=== PATIENT | male | born 1935 | race Caucasian/White ===

== ENCOUNTER 2016-12-09 16:24 | Inpatient (IN) | payer OTHER ==
[2016-12-09] MEDS ORDERED: LIDO/EPI 1% **for epidural** 30 ML SDV ONE (16:43)
[2016-12-09] MEDS ORDERED: LR 1,000 ML IV ONE (17:16)
[2016-12-09] MEDS ORDERED: LIDOCAINE 1% 2 ML INJ ONE (17:32)
[2016-12-09] MEDS ORDERED: PROPOFOL/EMULSION 500 MG/50 ML BOTTLE IV ONE ×2 (17:41)
[2016-12-09] MEDS ORDERED: REMIFENTANIL HCL 1 MG VIAL ONE (17:41)
[2016-12-09] MEDS ORDERED: SUCCINYLCHOLINE CHLORIDE*ANESTHESIA ONLY*200 MG/10 ML SYR IVP ONE (17:49)
[2016-12-09] MEDS ORDERED: LIDOCAINE 2% 5 ML SDV ONE (17:49)
[2016-12-09] MEDS ORDERED: DEXAMETHASONE 4 MG/ML VIAL ONE ×2 (18:49)
[2016-12-09] MEDS ORDERED: DEXMEDETOMIDINE HCL 400 MCG in NS 100 ML IV ONE (19:00)
[2016-12-09] MEDS ORDERED: LIDOCAINE 1% 30 ML SDV ONE (19:30)
--- NOTE | 2016-12-09 21:17 | POSTOPPROG ---
Post Op Note Date of Operation: 12/09/16 Surgeon: Estee Ogden Trading Manager: Deepa Davies Pre-op Diagnosis: hypopharyngeal mass Post-op Diagnosis: hypopharyngeal mass, airway obstruction Procedure: tracheostomy, direct laryngoscopy Findings: large hypopharyngeal tumor Inf/Abcess present in the surg proc area at time of surgery?: No EBL: Minimal
[2016-12-09] MEDS: HEPARIN 5,000 UNIT/0.5 ML SYR SC SCH (21:21)
[2016-12-09] MEDS: D5W 1/2 NS W/ 20 KCl/L 1,000 ML IV SCH (21:22)
--- NOTE | 2016-12-09 22:07 | GOP ---
[f rep st] OPERATIVE REPORT DATE OF OPERATION: 12/09/2016 SURGEON: Estee Ogden MD GARAGE DOOR TECHNICIAN: Dr. Deepa Davies ANESTHESIA: General anesthesia. PREOPERATIVE DIAGNOSIS: Hypopharyngeal mass. POSTOPERATIVE DIAGNOSIS: 1. Hypopharyngeal squamous cell carcinoma. 2. Airway obstruction. PROCEDURE PERFORMED: FINDINGS: ESTIMATED BLOOD LOSS: 30 cc. INDICATIONS: This is an 81-year-old male who has been followed by me for the past several weeks and has had increasing difficulty swallowing over the past week. Patient was scheduled for OR biopsy n ext week, but because of his worsening complaints, and today presented to my office with a right-marsha ed neck mass, I decided and talked to the patient and the about getting a CAT scan, and taking him to the operating room today for a biopsy. DESCRIPTION OF PROCEDURE: After informed consent for direct laryngoscopy and biopsies, patient was placed in the supine position. Attempt at general endotracheal intubation was done using a 5.0 mL T -Tube. The vocal cords were visualized, but the endotracheal tube was not able to be passed through the vocal cords. The patient was able to be masked adequately and using jet ventilation, direct la ryngoscopy was performed. There was found to be a very large friable hypopharyngeal tumor that seem s to be focused around the right piriform sinus, but diffusely involving the posterior aspects of th e arytenoid and the hypopharynx. It was bloody with just touching the tumor, it seemed also common more superiorly along the posterior pharyngeal wall. A biopsy was taken for frozen section, and pat ient was awoken from anesthesia. At this point, decision was made that the best treatment for the p atient was for a tracheostomy. I left the operating room once the patient was awake, and spoke with the patient's and son abou t my concern of his airway, and the need for tracheostomy. Raheel gave written consent for me to proc eed, at this point, with an awake tracheostomy. Returned to the operating room, and patient was then sedated with Precedex. Palpation of his neck s howed, again anterior, trachea airway without any evidence of tumor, but he is low in the neck with a very prominent innominate around the 2nd tracheal ring. The patient also did not tolerate lying f lat very well because of this bleeding from the biopsy. Once the patient was comfortable, I injecte d about 6 cc of 1% lidocaine with epinephrine into the skin and subcutaneous tissue, and the cricoid and subcricoid region. After patient was sterilely prepped and draped, a 15 blade was then used to make a skin incision. S ubplatysmal flaps were raised. Median raphe was identified and transected. The strap muscles were then transected in the midline down to the thyroid isthmus. The thyroid isthmus was then transected using the Harmonic scalpel. At this point, a peanut was used to bluntly dissect off the airway, th e cricoid was easily identified. The 2nd tracheal ring was found to be down his sternal notch. An innominate artery was readily palpable, but not visualized. FiO2 was turned down to room air. Yelitza ent was comfortable. A total of 1 cc of plain lidocaine was injected into the airway. The trachea was cleaned off using a peanut. An 11 blade was used to make a horizontal incision. After the cric oid hook was put in, the airway was lifted between the 1st 2 tracheal rings to allow for Mikki flap. Maria Dolores Celis was then used to cut the Mikki flap. A 3-0 Vicryl was used to suture the Mikki flap to the skin. Airway was patent. Patient was comfortable. A #7 Portex was easily inserted. Cuff was inflated and the patient was then put under general anesthesia. The skin was closed using 4-0 chromic and 3-0 silk was then used to suture the tracheostomy in place . Dressing was then placed. At this point, attention was paid back to the airway and the throat. Tooth guard was placed again and direct laryngoscopy was attempted again. Again, it was very diffic ult to see because the tumor was very friable. Additional biopsy was taken for permanent section, p er the request of Pathology. In addition, a feeding tube was placed through the nose. I visualized it going into the hypopharynx, but I was not able to see it any further past this. At this point, the patient was then transferred to the ICU in stable condition. COMPLICATIONS: Airway obstruction. /[id number]/MODL
--- NOTE | 2016-12-10 05:48 | SOAPPROG ---
SOAP Progress Note Assessment/Plan: Assessment: POD 1 s/p emergent tracheostomy, direct laryngoscopy and biopsy Plan: -ICU consult: concern for PNA after jet ventilation and medical management -cont aggressive pulm toilet -advance FT into stomach before use -nutrition consult for TF -IR consult for perc G tube -case management consult for d/c planning: POD 5 -PT eval: OOB -keep cuff inflated for 24 then may be able to deflate -ice chips ok 12/10/16 05:45 12/10/16 05:50 Subjective: Pt not able to phonate but nods head that he is comfortable and without pain. Objective: Vital Signs Temp Pulse Resp BP Pulse Ox 36.9 C 113 H 20 125/69 H 100 12/10/16 00:00 12/10/16 04:00 12/10/16 04:00 12/10/16 04:00 12/10/16 04:00 12/08/16 12/09/16 12/10/16 05:59 05:59 05:59 Output Total 800 Balance -800 Physical Exam - Physical Exam General Appearance: alert Neck: other (pt with trach in place but with excessive brown secretions, less bllody than initially post-op) ICD10 Worksheet Patient Problems: Problems Problem Status Onset Airway compromise Acute - ICD10 Problem Qualifiers (1) Airway compromise
[2016-12-10 08:55] LABS: % IMMATURE GRANULYOCYTES 0.5 % (0.0-1.1); ABSOLUTE IMMATURE GRANULOCYTES 0.07 10^3/uL (0.00-0.10); ADD DIFF? NO; ADD MORPH? NO; ADD SCAN? NO; ATYPICAL LYMPHOCYTE FLAG 0 (0-99); FRAGMENT RBC FLAG 0 (0-99); HEMATOCRIT 39.6 % (40.0-51.0); HEMOGLOBIN 13.8 g/dL (13.7-17.5); LEFT SHIFT FLG 10 (0-99); LIPEMIA HEMOLYSIS FLAG 90 (0-99); MEAN CELL HEMOGLOBIN 30.7 pg (27.9-34.1); MEAN CELL HEMOGLOBIN CONCENTR. 34.8 g/dL (32.4-36.7); MEAN PLATELET VOLUME 9.8 fL (8.7-11.7); PLATELET CLUMPS FLAG 10 (0-99); PLATELET COUNT 274 10^3/uL (150-400); RED CELL DISTRIBUTION WIDTH 12.9 % (11.5-15.2)
[2016-12-10 09:10] LABS: ALANINE AMINOTRANSFERASE 25 IU/L (21-72); ALKALINE PHOSPHATASE 50 IU/L (38-126); ANION GAP 7 mEq/L (8-16); ASPARTATE AMINOTRANSFERASE 15 IU/L (17-59); BILIRUBIN,TOTAL 0.9 mg/dL (0.1-1.4); CALCIUM 8.6 mg/dL (8.5-10.4); CARBON DIOXIDE 24 mEq/l (22-31); CHLORIDE 101 mEq/L (97-110); CREATININE 0.6 mg/dL (0.7-1.3); GLOMERULAR FILTRATION RATE > 60; GLUCOSE 150 mg/dL (70-100); INR 1.21 (0.83-1.16); POTASSIUM 4.1 mEq/L (3.5-5.2); PROTIME(PATIENT) 15.3 SEC (12.0-15.0); SODIUM 132 mEq/L (134-144)
[2016-12-10] MEDS ORDERED: FAMOTIDINE 20 MG in NS 100 ML IV ONE (09:40)
[2016-12-10] MEDS: HEPARIN 5,000 UNIT/0.5 ML SYR SC SCH (09:55)
--- NOTE | 2016-12-10 10:08 | GCON ---
[f rep st] CONSULTATION TELETYPE TECHNICIAN CONSULTATION. REASON FOR ADMISSION: Status post tracheostomy, hypopharyngeal mass with airway obstruction. HISTORY OF PRESENT ILLNESS: The patient is a pleasant 81-year-old white male with a past medical hi story including malignant melanoma, basal cell carcinoma, squamous cell carcinoma of the skin. He w as taken to the operating room yesterday for a biopsy, which turned into an emergent tracheostomy se condary to a large hypopharyngeal mass causing airway obstruction. He was apparently ventilated wit h jet ventilation and the trach was placed. There was significant bleeding in the postoperative per iod. Currently, he is resting comfortably but is somewhat frustrated with inability to talk. He is scheduled for PEG tube placement later today. Biopsy results are currently pending. 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 PAST SURGICAL HISTORY: Tonsillectomy and detached retina surgery, right and left. ALLERGIES: No known allergies to medications. SOCIAL HISTORY: Previous smoker, none for many years. No significant alcohol use. PHYSICAL EXAM: VITAL SIGNS: Blood pressure is 128/75, pulse 105, respirations 25, temperature 37.4 , oxygen saturation 97% on 12 L trach collar. GENERAL: He is a well-developed, well-nourished, eld erly white male who is resting comfortably on supplemental oxygen. HEENT: Eyes: AARON. EOMI. Thr oat shows no erythema or tonsillar hypertrophy. NECK: Supple. Tracheostomy tube site shows some d ried blood around the orifice, but nothing that appears fresh. HEART: Regular rate and rhythm with a 2/6 soft systolic murmur in the left sternal border without radiation. LUNGS: Diminished breath sounds but no wheeze. ABDOMEN: Soft, nontender. Bowel sounds are present in all 4 quadrants. EX TREMITIES: No clubbing, cyanosis, or edema. LABORATORIES: White count is 14 with a hemoglobin of 13, hematocrit 39, and platelet count is 274. INR is 1.21. Sodium 132, potassium 4.1, chloride 101, CO2 24, BUN 15, creatinine 0.6, glucose is 1 50. An abdominal x-ray shows feeding tube in the distal esophagus. IMPRESSION: 1. Large hypopharyngeal mass. 2. Airway obstruction. 3. Status post tracheostomy. RECOMMENDATIONS: 1. Close cardiovascular monitoring. We will pay particular attention to the trach site. If this b ecomes dislodged, will be unable to intubate patient. 2. DVT and PE prophylaxis. 3. Stress ulcer prophylaxis. 4. Adequate pain control. 5. PEG tube is to be placed today. 6. We will anticipate consultation with Oncology. /[id number]/MODL
[2016-12-10] MEDS: D5W 1/2 NS W/ 20 KCl/L 1,000 ML IV SCH (10:59)
[2016-12-10] MEDS ORDERED: FAMOTIDINE 20 MG/NACL 50 ML IV ONE (11:00)
[2016-12-10] MEDS ORDERED: BRIMONIDINE/TIMOLOL 5 ML OPHT.BTL EACHEYE SCH (11:00)
[2016-12-10] MEDS: BRIMONIDINE/TIMOLOL 5 ML OPHT.BTL EACHEYE SCH ×2 (12:46→21:45)
--- NOTE | 2016-12-10 12:50 | SOAPPROG ---
SOAP Progress Note Assessment/Plan: Assessment:Plan: pt seen and examined needs PEG secondary to ENT cancer will attempt today full consult to follow 12/10/16 12:49 Objective: Vital Signs Temp Pulse Resp BP Pulse Ox 37.4 C 102 H 24 H 114/73 94 12/10/16 08:00 12/10/16 10:00 12/10/16 10:00 12/10/16 10:00 12/10/16 10:00 Laboratory Results 12/10/16 08:30 12/10/16 08:30 12/09/16 12/10/16 12/11/16 05:59 05:59 05:59 Intake Total 680 Output Total 1150 200 Balance -470 -200 PT 15.3 SEC (12.0-15.0) H 12/10/16 08:30 INR 1.21 (0.83-1.16) H 12/10/16 08:30 ICD10 Worksheet Patient Problems: Problems Problem Status Onset Airway compromise Acute
[2016-12-10] MEDS ORDERED: MIDAZOLAM 2 MG/2 ML VIAL ONE ×2 (13:48→15:39)
[2016-12-10] MEDS ORDERED: fentaNYL 100 MCG/2 ML INJ ONE ×2 (13:49→15:39)
--- NOTE | 2016-12-10 14:18 | POSTOPPROG ---
Post Op Note Date of Operation: 12/10/16 Surgeon: Julio Cesar Hayes Anesthesia: IV Sedation (versed 2mg and fentanyl 50 mcg IV) Pre-op Diagnosis: need for PEG Post-op Diagnosis: nearly obstructing hypopharynx tumor precludes EGD - IR to place Indication: need for feeding tube Procedure: attempted EGD - only to hypophrynx Findings: large hypophyrnx mass Inf/Abcess present in the surg proc area at time of surgery?: No EBL: Minimal (few ml) Complications: none immediate Specimen(s): none
--- NOTE | 2016-12-10 14:29 | GCON ---
[f rep st] CONSULTATION DATE OF CONSULTATION: 12/10/2016 REFERRING PHYSICIAN: Florin Oliveira DO REASON FOR CONSULTATION: A need for feeding tube prior to head and neck cancer treatment. HISTORY OF PRESENT ILLNESS: I have been asked by Dr. Oliveira to consult on this patient for feeding tube placement. The patient is a pleasant 81-year-old man who has past medical history significant for basal cell carcinomas, malignant melanoma of the ear, squamous carcinoma of the skin, and now a large mass in his hypopharyngeal area. He was taken to the operating room yesterday for a biopsy, a nd had an emergent tracheostomy secondary to a large hypopharyngeal mass causing airway obstruction. He was admitted to the ICU. I am called to ask to place a PEG prior to treatment of his large hyp opharyngeal mass, with radiation and chemotherapy. PAST MEDICAL HISTORY: The basal cell carcinomas of the forehead, malignant melanoma over the ear, s quamous cell carcinoma of the skin, and now a hypopharyngeal mass. PAST SURGICAL HISTORY: Previous surgeries include the tonsillectomy and detached retinal surgery, b oth right and left. ALLERGIES: He does not have any allergies to medications. MEDICATIONS: Currently, in hospital, his medications include heparin, which has been held, Combigan 1 drop each eye twice daily, morphine 1 mg IV q.1-hour p.r.n., and some potassium. SOCIAL HISTORY: Smoked a pipe for 50 years; he stopped that. He does not drink any significant rayshawn unt of alcohol. FAMILY HISTORY: There are some cancers in the family, with endometrial cancer and pancreatic cancer , but they are at advanced ages. No colon cancer to his knowledge. REVIEW OF SYSTEMS: A comprehensive review of systems was performed, and is negative, other than the HPI in here. He does have some discomfort from his recent tracheostomy. He has some difficulty co ntrolling his saliva from his large hypopharyngeal mass. He has had weight loss. He denies chest p ain, palpitations, shortness of breath, nausea, vomiting, abdominal pain, diarrhea, hematochezia. PHYSICAL EXAMINATION: GENERAL APPEARANCE: Cachectic, elderly male sitting in his bed, with recent tracheostomy tube placed. VITAL SIGNS: Blood pressure is 122/80, pulse is 108, respirations are 12 . He is 100% on tracheostomy collar. Temperature 38.1. EYES: Anicteric. AARON. EOMI. MOUTH: M oist. A large hypopharyngeal mass. NECK: Supple. Difficult to assess JVD. BACK: No spine tende rness. LUNGS: Clear. CARDIAC: S1, S2. Tachycardic, regular rhythm. I do not appreciate murmurs , rubs or gallops. ABDOMEN: Bowel sounds are normal in pitch and frequency. Abdomen is soft and n ontender. EXTREMITIES: No cyanosis, clubbing, or edema. NEUROLOGIC: Alert and oriented. Nonfoca l. SKIN: No stigmata of advanced liver disease. No rashes. LABORATORY DATA: From today, WBC 14.13, hemoglobin 13.8, hematocrit 39.6, platelet count 274. Pro time 15.3, INR 1.21. Sodium 132, potassium 4.1, chloride 104, bicarbonate 24, BUN 15, creatinine 0. 6, glucose 150, calcium 8.6. Total bilirubin 0.9, AST 15, ALT 25, alkaline phosphatase 50, total pr otein 6.0, albumin 3.0. Abdominal x-ray from this morning: Feeding tube in distal esophagus. Chest x-ray from this morning: Interstitial edema, unchanged. Feeding tube either in distal esopha seda or upper abdomen. Chest x-ray from yesterday: Tip of feeding tube is presumably in distal esophagus. Heart size is n ormal. Patchy opacity seen in the left lung base, may be a hiatal hernia. ASSESSMENT: An 81-year-old man with a large hypopharyngeal mass. He is going to be undergoing chem otherapy and radiation in the very near future, who is going to need a feeding tube placed. RECOMMENDATIONS: 1. Proceed with PEG. If I have difficulty advancing the endoscope down beyond this mass or if the stomach is not well positioned for me to place it, then I will not attempt placement, and the patien t can have placement from either Interventional Radiology or Surgery. 2. 1 g Ancef curriculum and instruction director for a PEG. 3. Further recommendations to follow results of above and clinical course. Thank you for allowing me to participate in this patient's healthcare. Do not hesitate to call me w ith any questions. /[id number]/MODL
--- NOTE | 2016-12-10 14:44 | GPN ---
[f rep st] PROCEDURE NOTE DATE OF PROCEDURE: 12/10/2016 PROCEDURE: Esophagogastroduodenoscopy (EGD). INDICATION: Need for long-term feeding. PREOPERATIVE DIAGNOSIS: Hypopharyngeal mass, need for long-term feeding. POSTOPERATIVE DIAGNOSIS: Large hypopharyngeal mass, precludes advancement of the EGD scope and the procedure terminated. INFORMED CONSENT: I had a detailed discussion with the patient and his regarding the procedure , alternatives, benefits, and risks including bleeding, perforation, infection, risk of medication. Informed consent was signed and witnessed. We did have a discussion that if I was not able to comp lete the PEG, then I would call Interventional Radiology or Surgery. COMPLICATIONS: None immediate. MEDICATIONS: Versed 2 mg IV, fentanyl 50 mcg IV. DESCRIPTION OF PROCEDURE: Patient remained in ICU bed. After adequate sedation, the forward viewin g upper endoscope was inserted in the oropharynx and advanced to the posterior pharynx. As I tried to advance down the esophagus, there was a large hypopharyngeal mass. It was somewhat difficult to advance on either side or in the center. I could not see a clear esophageal lumen to advance the en doscope, and I felt it was unsafe to proceed. Therefore the procedure was terminated. The patient tolerated the procedure well. Remained in his ICU bed in stable condition. IMPRESSION: Large hypopharyngeal mass precluding Esophagogastroduodenoscopy (EGD). RECOMMENDATIONS: Have contacted Dr. Dewitt from Interventional Radiology to place PEG tube. Thank you for allowing me to participate in the patient's healthcare. Do not hesitate to call me wi th questions. /[id number]/MODL
[2016-12-10] MEDS ORDERED: IOPAMIDOL (ISOVUE-300) 100 ML BTL IV ONE (15:22)
[2016-12-10] MEDS ORDERED: LIDOCAINE 1% 30 ML SDV ONE ×2 (15:22→17:38)
[2016-12-10] MEDS ORDERED: LIDOCAINE 2% JELLY 20 ML (UROJECT) ONE (15:22)
[2016-12-10] MEDS ORDERED: FLUMAZENIL 0.5 MG/5 ML MDV IVP ONE (15:38)
[2016-12-10] MEDS ORDERED: NALOXONE HCL 0.4 MG/ML INJ ONE (15:39)
[2016-12-10] MEDS ORDERED: GLUCAGON,HUMAN RECOMBINANT 1 MG VIAL ONE (15:40)
--- NOTE | 2016-12-10 17:22 | POSTOPPROG ---
Post Op Note Date of Operation: 12/10/16 Surgeon: Nilson Dewitt Anesthesia: IV Sedation Pre-op Diagnosis: Hypopharyngeal tumor Post-op Diagnosis: Same. Large hiatal hernia Indication: Gastrostomy requested Procedure: Nasoenteric feeding tube, 10F Findings: Large HH. Percutaneous gastrostomy impossible. Inf/Abcess present in the surg proc area at time of surgery?: No Complications: 0
--- NOTE | 2016-12-10 20:29 | GCON ---
[f rep st] CONSULTATION DATE OF CONSULTATION: 12/10/2016 REFERRING PHYSICIAN: Julio Cesar Hayes MD REASON FOR REQUEST: Open gastrostomy tube. HISTORY OF PRESENT ILLNESS: Maurilio is an 81-year-old man who has a history of malignant melanoma. He was taken to the operating room on December 09, 2016 for a biopsy of a retropharyngeal mass. In the operating room he required emergent tracheostomy due to the mass causing airway obstruction. Percutaneous gastrostomy tube was attempted; however, the scope was unable to be passed beyond the mass. Dr. Dewitt was then consulted to place it in radiology; however, it was found that he had a large hiatal hernia with only the pylorus below the diaphragm. A nasal jejunal feeding tube has been placed. Per report , the frozen section of the mass shows squamous cell. PAST MEDICAL HISTORY: Basal cell carcinoma, malignant melanoma of the ear, squamous cell carcinoma of the skin and hypopharyngeal mass with reports of this being a squamous cell cancer. PAST SURGICAL HISTORY: Tonsillectomy, detached retina surgery right and left. ALLERGIES: No known allergies to medications. SOCIAL HISTORY: Previously smoked. He has not smoked for many years. He does not use alcohol. He is . REVIEW OF SYSTEMS: He recently has come back from his nasal jejunal feeding and I do not believe a review of systems is accurate at this point. PHYSICAL EXAMINATION: VITAL SIGNS: Afebrile, 119/63, 76, 98% via the trach. GENERAL: Pleasant man lying in gurney appears stated age. HEENT: Normocephalic. Nasal jejunal tube in place and secured. NECK: Trach in place. LUNGS: Clear to auscultation bilaterally. No increased work of breathing. ABDOMEN: No surgical incisions. He is soft. He is nontender. IMPRESSION AND PLAN: The patient is an 81-year-old man with a new squamous cell cancer of a hypopharyngeal mass. No staging has been done. He has a nasal jejunal tube at this point. I think it is most appropriate to complete staging workup and then possibly perform lap/open jejunal tube and possible port placement depending if he will need a port for chemotherapy. A gastrostomy tube would be a bigger undertaking since he has a large hiatal hernia. (The hiatal hernia would need to be brought down into his abdomen first ). I have consulted the medical oncologist and Dr. Dasilva will see him tomorrow once staging is complete and recommendations are made. Then I can place a jejunal tube and/or a port. I will continue to follow. /[id number]/MODL MTDD
[2016-12-10] MEDS ORDERED: BIMATOPROST EACHEYE SCH (21:00)
[2016-12-10] MEDS: BIMATOPROST EACHEYE SCH (21:49)
[2016-12-11] MEDS: D5W 1/2 NS W/ 20 KCl/L 1,000 ML IV SCH (02:00)
[2016-12-11] MEDS: BRIMONIDINE/TIMOLOL 5 ML OPHT.BTL EACHEYE SCH ×2 (08:31→21:14)
--- NOTE | 2016-12-11 09:22 | PDINTPN ---
Test Fixture Assembler Progress Note Assessment/Plan: Assessment/Plan: * S/P trach for compromised airway -start family teaching * Nutrition-TF. Feeding tube in place -likely j-tube per surgery * Large hypopharyngeal mass -consult oncology * Pain-okay * Speech to see * PT/OT with ambulation * Dispo-home soon Subjective: Comfortable. Objective: Vital Signs Temp Pulse Resp BP Pulse Ox 37.7 C 86 25 H 139/73 H 94 12/11/16 07:51 12/11/16 07:51 12/11/16 07:51 12/11/16 07:51 12/11/16 07:51 Laboratory Results 12/10/16 08:30 12/10/16 08:30 12/10/16 12/11/16 12/12/16 05:59 05:59 05:59 Intake Total 680 1850 Output Total 1150 750 Balance -470 1100 PT 15.3 SEC (12.0-15.0) H 12/10/16 08:30 INR 1.21 (0.83-1.16) H 12/10/16 08:30 Physical Exam - Physical Exam General Appearance: alert, no apparent distress, moderate distress EENT: normal ENT inspection Neck: non-tender, full range of motion, other (trach clean and dry) Respiratory: chest non-tender, lungs clear, normal breath sounds Cardiac/Chest: normal peripheral pulses, regular rate, rhythm Peripheral Pulses: 2+: carotid (R), carotid (L), femoral (R), femoral (L), dorsalis-pedis (R), dorsalis-pedis (L) Abdomen: normal bowel sounds, non-tender, soft Male Genitalia: deferred Rectal: deferred Skin: normal color, warm/dry Extremities: normal range of motion, non-tender, normal inspection, normal capillary refill Neuro/Psych: alert ICD10 Worksheet Patient Problems: Problems Problem Status Onset Airway compromise Acute
--- NOTE | 2016-12-11 09:32 | SOAPPROG ---
SOAP Progress Note Assessment/Plan: Assessment: POD 1 s/p emergent tracheostomy, direct laryngoscopy and biopsy Plan: -ICU team: appreciate care -cont aggressive pulm toilet -plan to proceed with open J-tube and possible port placement -staging CT scans have been done as an outpatient -d/c planning: eval for discharge early next week to home with trach supplies: suction unit, humidifier, trach supplies -RT and nursing to teach family and pt about trach care -keep cuff deflated : pt can phonate by covering trach or passey jason valve ( intermittent only 2/2 secretions) -ice chips ok 12/10/16 05:45 12/10/16 05:50 12/11/16 09:28 Subjective: Pt able to phonate and doing as expected. No complaints of pain. All questions answered. Objective: Vital Signs Temp Pulse Resp BP Pulse Ox 37.7 C 86 25 H 139/73 H 94 12/11/16 07:51 12/11/16 07:51 12/11/16 07:51 12/11/16 07:51 12/11/16 07:51 Laboratory Results 12/10/16 08:30 12/10/16 08:30 12/10/16 12/11/16 12/12/16 05:59 05:59 05:59 Intake Total 680 1850 Output Total 1150 750 Balance -470 1100 PT 15.3 SEC (12.0-15.0) H 12/10/16 08:30 INR 1.21 (0.83-1.16) H 12/10/16 08:30 Physical Exam - Physical Exam General Appearance: alert, no apparent distress Neck: other (neck: trach in good position, decreased secretions from yesterday, pt able to phonate with finger over trach) ICD10 Worksheet Patient Problems: Problems Problem Status Onset Airway compromise Acute - ICD10 Problem Qualifiers (1) Airway compromise
[2016-12-11] MEDS: PANTOPRAZOLE SODIUM 40 MG in NS 100 ML IV SCH (15:40)
[2016-12-11] MEDS ORDERED: ceFAZolin 2 GM/DEXTROSE 100 ML IV ONE (17:00)
--- NOTE | 2016-12-11 17:43 | SOAPPROG ---
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 Caruso, discussed at ICU rounds Plan: 12/11/16 17:39 Objective: Vital Signs Temp Pulse Resp BP Pulse Ox 37.5 C 78 22 H 132/70 H 93 12/11/16 12:00 12/11/16 14:00 12/11/16 12:00 12/11/16 14:00 12/11/16 14:00 Microbiology 12/11/16 13:15 - Final Sputum, Induced/Suctioned Laboratory Results 12/10/16 08:30 12/10/16 08:30 12/10/16 12/11/16 12/12/16 05:59 05:59 05:59 Intake Total 680 1850 Output Total 1150 750 Balance -470 1100 PT 15.3 SEC (12.0-15.0) H 12/10/16 08:30 INR 1.21 (0.83-1.16) H 12/10/16 08:30 ICD10 Worksheet Patient Problems: Problems Problem Status Onset Airway compromise Acute
[2016-12-11] MEDS: BIMATOPROST EACHEYE SCH (21:00)
[2016-12-12] MEDS ORDERED: ceFAZolin 2 GM/DEXTROSE 100 ML IV ONE (06:00)
[2016-12-12] MEDS ORDERED: BUPIVACAINE 0.5% 30 ML SDV ONE (07:34)
[2016-12-12] MEDS ORDERED: SKIN ADHESIVE (DERMABOND) 1 EACH TP ONE ×2 (07:34→10:07)
[2016-12-12] MEDS ORDERED: ROCURONIUM 100 MG/10 ML VIAL ONE (07:51)
[2016-12-12] MEDS ORDERED: LIDOCAINE 2% 100 MG/5 ML SYR ONE (07:51)
[2016-12-12] MEDS ORDERED: PROPOFOL 200 MG/20 ML VIAL ONE (07:51)
[2016-12-12] MEDS ORDERED: fentaNYL 250 MCG/5 ML INJ ONE (07:51)
[2016-12-12] MEDS ORDERED: MIDAZOLAM 2 MG/2 ML VIAL ONE (07:56)
[2016-12-12] MEDS ORDERED: METHYLENE BLUE 0.5% 50 MG/10 ML AMP ONE (09:28)
--- NOTE | 2016-12-12 09:39 | GCON ---
[f rep st] CONSULTATION MEDICAL ONCOLOGY CONSULTATION. REFERRING PHYSICIAN: Estee Ogden MD REASON FOR CONSULTATION AND REFERRAL: This is an 81-year-old gentleman, who was found to have a lar ge friable head and neck carcinoma centered around the right piriform sinus, that due to local exten enrique, required emergency tracheostomy. 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 HISTORY OF PRESENT ILLNESS: Maurilio is a pleasant, 81-year-old white male with no previous invasive ma lignancy, who had noted as of early 2016, dysphagia with sinus infection and 10-pound weight loss. He needed to modify his food selection and had been on a prednisone trial, and was referred to Dr. Jossie Ogden. When medical therapy did not improve his symptoms, he underwent a CT scan earlier this w comanche, on the , and then due to appreciation of the size of the hypopharyngeal mass, was emergentl y admitted to [facility] for endoscopic diagnosis and management. The patient under went biopsy of the hypopharyngeal mass on 12/09/2016, and due to the friable nature of the tumor wit h active bleeding and the size and location of the mass, he needed emergent tracheostomy at the time of his biopsy. His operative report and followup now in the hospital are noted and appreciated. The patient has a history of nonmelanoma skin cancer, but no previous head and neck malignancy. PAST MEDICAL HISTORY: A remote history of atrial fibrillation, CHF, detached retina x2, COPD. PAST SURGICAL HISTORY: Includes: Tonsillectomy and repair of right and left detached retina. ALLERGIES: None known. SOCIAL HISTORY: The patient lives with his [place]y. They have been for 60 years. Lars bravo is originally from [place]. He has a mechanical engineering degree from the [employer], and has been employed by the [employer], and in his work had occupational exposure to rad iation, but not in excess quantities. He is now retired, lives in [place] 3 miles from [place], an d lives with his . He has 3 children, all of which live out of town. He was a long-term pipe s moker for 50 years and consumes 1 to 2 alcoholic beverages per day. FAMILY HISTORY: Noncontributory. REVIEW OF SYSTEMS: Notable as above. Prior to this acute illness, he had been active physically an d cognitively with multiple hobbies. PHYSICAL EXAMINATION: GENERAL: This is a pleasant, elderly, white male. Seen in the ICU, sitting upright in a chair. His is at the bedside. Because of his tracheostomy, his provides mos t of his symptomatic history and historical history. He is in no acute distress. HEENT: He has a nasojejunal feeding tube placed in the right nostril. No other facial asymmetry. Sclerae anicteric . Oral mucosa intact. No definite lymphadenopathy in the face or neck or axillary region. NECK: Tracheostomy is present at the midline and in usual position. It is productive of copious amounts o f barker whitish sputum. LUNGS: Lipscomb notable for diffuse upper airway rhonchi. CARDIAC: Quiet he art sounds. Regular rhythm. Without S3 or S4. ABDOMEN: Without mass, tenderness or HSM. EXTREMI TIES: Notable for strong pulses without peripheral edema. SKIN: Intact. LABORATORY DATA: Hemoglobin 13, hematocrit 39, platelet count 274, white count 14. Sodium 132, pot assium 4.1, BUN 15, creatinine 0.6, glucose 150. IMPRESSION: 1. Hypopharyngeal head and neck carcinoma, squamous cell histology. Awaiting full and final pathol ogy report in a gentleman whose presentation required emergent tracheostomy due to airway obstructio n and bleeding risk. 2. Chronic obstructive pulmonary disease. 3. In need of nutritional support. 4. In need of IV access. 5. History of nonmelanoma skin cancer. Mr. Bateman has locally advanced hypopharyngeal mass, as described by Dr. Ogden in her operative report. He will likely respond to combined modality therapy, and Dr. Ogden is planning input and di rection at the [facility] to clarify the treatment options Maurilio has before him. If it is deemed fea sible to provide either upfront or neoadjuvant chemoradiation, I have informed the patient and that systemic chemotherapy with radiation could be provided at the [facility] facility in the leonid r future. The patient would need further staging workup, and I have spoken with Dr. Deepti Caruso about placemen t of a Mediport for IV access and need for feeding jejunostomy tube for nutritional support. I have reviewed the situation with the patient and his , and reviewed their questions and concer ns. Our service will follow this patient through his hospitalization, and as is relevant post discharge at the [facility] facility. /[id number]/MODL
--- NOTE | 2016-12-12 10:22 | POSTOPPROG ---
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 hiatal hernia. required j tube. port for Procedure: L IJ port. Feeding jejunostomy Inf/Abcess present in the surg proc area at time of surgery?: No EBL: Minimal Specimen(s): none
[2016-12-12] MEDS: PANTOPRAZOLE SODIUM 40 MG in NS 100 ML IV SCH (10:46)
[2016-12-12] MEDS: BRIMONIDINE/TIMOLOL 5 ML OPHT.BTL EACHEYE SCH ×2 (10:46→21:15)
--- NOTE | 2016-12-12 10:52 | PDINTPN ---
Pick Up Worker Progress Note Assessment/Plan: Assessment/Plan: * S/P trach for compromised airway -start family teaching * Nutrition-TF. Feeding tube in place -j-tube placed per surgery * Large hypopharyngeal mass -consult oncology * Pain-okay * Speech to see * PT/OT with ambulation Subjective: Resting comfortably post op Objective: Vital Signs Temp Pulse Resp BP Pulse Ox 37.1 C 77 21 H 126/63 H 96 12/12/16 10:30 12/12/16 10:30 12/12/16 10:30 12/12/16 10:30 12/12/16 10:30 Microbiology 12/11/16 13:15 - Final Sputum, Induced/Suctioned Laboratory Results 12/10/16 08:30 12/10/16 08:30 12/11/16 12/12/16 12/13/16 05:59 05:59 05:59 Intake Total 1850 1000 Output Total 750 400 Balance 1100 600 PT 15.3 SEC (12.0-15.0) H 12/10/16 08:30 INR 1.21 (0.83-1.16) H 12/10/16 08:30 Physical Exam - Physical Exam General Appearance: alert, no apparent distress EENT: PERRL/EOMI, normal ENT inspection Neck: non-tender, full range of motion Respiratory: rhonchi (few), No normal breath sounds, No respiratory distress, No wheezing Cardiac/Chest: normal peripheral pulses, regular rate, rhythm, systolic murmur Abdomen: normal bowel sounds, non-tender, soft Male Genitalia: deferred Rectal: deferred Skin: normal color, warm/dry Neuro/Psych: no motor/sensory deficits, alert, normal mood/affect, oriented x 3 ICD10 Worksheet Patient Problems: Problems Problem Status Onset Airway compromise Acute
--- NOTE | 2016-12-12 11:44 | SOAPPROG ---
SOAP Progress Note Assessment/Plan: Assessment: POD 1 s/p emergent tracheostomy, direct laryngoscopy and biopsy Plan: -ICU team: appreciate care -cont aggressive pulm toilet -J-tube and port placement done today -staging CT scans have been done as an outpatient -d/c planning: eval for discharge early next week to home with trach supplies: suction unit, humidifier, trach supplies -RT and nursing to teach family and pt about trach care -keep cuff deflated : pt can phonate by covering trach or passey jason valve ( intermittent only 2/2 secretions) -ice chips ok -will change trach tomorrow to #7 cuffless unfenestrated 12/10/16 05:45 12/10/16 05:50 12/11/16 09:28 12/12/16 11:43 Subjective: pt still somewhat sedated from surgery. Objective: Vital Signs Temp Pulse Resp BP Pulse Ox 37.1 C 75 19 120/63 96 12/12/16 10:30 12/12/16 11:00 12/12/16 11:00 12/12/16 11:00 12/12/16 11:00 Microbiology 12/11/16 13:15 - Final Sputum, Induced/Suctioned Laboratory Results 12/10/16 08:30 12/10/16 08:30 12/11/16 12/12/16 12/13/16 05:59 05:59 05:59 Intake Total 1850 1000 Output Total 750 400 Balance 1100 600 PT 15.3 SEC (12.0-15.0) H 12/10/16 08:30 INR 1.21 (0.83-1.16) H 12/10/16 08:30 Physical Exam - Physical Exam EENT: other (neck: trach site with some irration of inferior skin: gauze placed) ICD10 Worksheet Patient Problems: Problems Problem Status Onset Airway compromise Acute - ICD10 Problem Qualifiers (1) Airway compromise
[2016-12-12] MEDS: BIMATOPROST EACHEYE SCH (21:15)
[2016-12-12] MEDS: D5W 1/2 NS W/ 20 KCl/L 1,000 ML IV SCH (21:16)
--- NOTE | 2016-12-13 00:31 | GOP ---
[f rep st] OPERATIVE REPORT DATE OF OPERATION: 12/12/2016 SURGEON: Deepti Caruso MD ANESTHESIA: General. ANESTHESIOLOGIST: Luciano Jarquin MD PREOPERATIVE DIAGNOSIS: Retropharyngeal tumor with dysphagia. POSTOPERATIVE DIAGNOSIS: Retropharyngeal tumor with dysphagia. PROCEDURE PERFORMED: 1. Left ultrasound-guided PowerPort placement. 2. Laparoscopic-assisted jejunostomy feeding tube. FINDINGS: No abdominal metastasis. Tip of catheter in SVC SPECIMENS: None. ESTIMATED BLOOD LOSS: 10 cc. INDICATIONS: The patient is an 81-year-old man with a large retropharyngeal mass that has been shown to be squamous cell carcinoma. He has dysphagia due to the large mass. He was unable to get a percutaneous gastrostomy tube due to the mass being large and could not get one placed in interventional radiology due to having a large hiatal hernia. Chemotherapy will require a port. DESCRIPTION OF PROCEDURE: The patient was brought into the operating room, placed supine on the table, and general anesthesia was administered. His neck, chest, and abdomen were prepped and draped in the usual sterile fashion. Due to the shape of his shoulder being slightly anterior, I elected to perform an ultrasound-guided port. I used the ultrasound to identify the left internal jugular vein. I infiltrated the soft tissues on his chest as well as his neck with 0.5% Marcaine. I accessed the internal jugular vein with dark return of blood flow. I threaded the guidewire and removed the needle. I created a pocket to accommodate the port in the left chest. I tunneled this up to the insertion site. I measured the catheter under fluoroscopy and cut it to size. Using the Seldinger technique, I placed a dilator and sheath over the wire. I removed the wire and the dilator. I threaded the catheter through the sheath and peeled away the sheath. Placement was confirmed with fluoroscopy. There was no kinking in the catheter. The port withdrew blood easily and was flushed with heparin. The pocket was closed with 3-0 Vicryl followed by 4-0 Monocryl. The neck incision was closed with 4-0 Monocryl. Dermabond applied. Attention was then drawn to creating a jejunostomy tube. I infiltrated all sites with 0.5% Marcaine prior to making incisions. I made an incision above his umbilicus. I elevated it. I inserted the Veress needle. It passed the hanging drop test. His abdomen insufflated easily to a pressure of 15 mmHg. Under direct vision, I placed a 5 mm subxiphoid trocar and a 5 mm trocar in the right upper quadrant. None of his stomach was visible in his abdomen. Identified the ligament of Treitz and was able to find a loop of bowel distal to this that would come to the abdominal wall easily. I marked this on the outside of the skin. I then made a small incision and inserted an Romain wound protector. Using 3-0 Vicryl, I created 4 tacking sutures that would able to bring the jejunum up to the abdominal wall. I then made a pursestring on the jejunum. I passed the sizer through the abdominal wall. I created an enterotomy in the jejunum and insufflated the balloon. The sizer measured 2.5 cm. Next, I exchanged this for the Jerel-Medeiros feeding jejunostomy. This was threaded into the bowel. The pursestring suture was secured, and the sutures to the abdominal wall were secured. I insufflated the balloon with 6 cc of water. I then tested it by insufflating the jejunum with methylene blue and saline. There were no leaks noted. The nasojejunal tube was removed, and I noted that the new jejunostomy tube was threading proximally in the bowel. I then spent time making sure that the tube was threaded distally. I tested the area again, and no leaks were noted. I closed the fascia with #1 PDS. I closed the deep layer with 3-0 Vicryl. I closed the skin with 3-0 Vicryl followed by 4-0 Monocryl. Dermabond applied. He was awakened in the operating room, extubated, transferred back to the ICU in stable condition. /[id number]/MODL MTDD
--- NOTE | 2016-12-13 08:47 | PDINTPN ---
Evs Tech Progress Note Assessment/Plan: Assessment/Plan: * S/P trach for compromised airway -start family teaching * Nutrition-TF. Feeding per J-tube * Large hypopharyngeal mass * Pain-okay * Speech to see * PT/OT with ambulation * Dispo-? home soon Subjective: Resting comfortably Objective: Vital Signs Temp Pulse Resp BP Pulse Ox 36.8 C 87 26 H 147/81 H 90 L 12/13/16 08:00 12/13/16 08:00 12/13/16 08:00 12/13/16 08:00 12/13/16 08:00 Microbiology 12/11/16 13:15 - Final Sputum, Induced/Suctioned Laboratory Results 12/10/16 08:30 12/10/16 08:30 12/12/16 12/13/16 12/14/16 05:59 05:59 05:59 Intake Total 1000 1568 Output Total 400 1125 Balance 600 443 PT 15.3 SEC (12.0-15.0) H 12/10/16 08:30 INR 1.21 (0.83-1.16) H 12/10/16 08:30 Physical Exam - Physical Exam General Appearance: alert, no apparent distress EENT: PERRL/EOMI, normal ENT inspection Neck: non-tender, full range of motion, supple, other (trach okay) Respiratory: rhonchi (scattered), No crackles, No stridor, No wheezing Cardiac/Chest: normal peripheral pulses, regular rate, rhythm, systolic murmur Peripheral Pulses: 2+: carotid (R), carotid (L), femoral (R), femoral (L), dorsalis-pedis (R), dorsalis-pedis (L) Abdomen: normal bowel sounds, non-tender, soft Male Genitalia: deferred Rectal: deferred Skin: normal color, warm/dry Neuro/Psych: no motor/sensory deficits, alert, normal mood/affect, oriented x 3 ICD10 Worksheet Patient Problems: Problems Problem Status Onset Airway compromise Acute
[2016-12-13] MEDS: PANTOPRAZOLE SODIUM 40 MG in NS 100 ML IV SCH (09:19)
[2016-12-13] MEDS: BRIMONIDINE/TIMOLOL 5 ML OPHT.BTL EACHEYE SCH ×2 (09:19→21:26)
[2016-12-13] MEDS: D5W 1/2 NS W/ 20 KCl/L 1,000 ML IV SCH ×2 (11:42→20:58)
[2016-12-13] MEDS ORDERED: ENALAPRILAT DIHYDRATE 1.25 MG/ML VIAL IVP PRN (14:01)
[2016-12-13] MEDS ORDERED: SULFAMETHOX/TMP 800/160 MG 1 TAB PO SCH (14:30)
[2016-12-13] MEDS: TMP TUBE SCH ×2 (14:53→21:27)
[2016-12-13] MEDS: SULFAMETHOX TUBE SCH ×2 (14:53→21:27)
--- NOTE | 2016-12-13 15:30 | SOAPPROG ---
SOAP Progress Note Assessment/Plan: Assessment: POD # 1 s/p Left IJ port and jejunostomy tube Doing very well. Tolerating tube feeds Advance tube feeds tomorrow If use J tube for meds, must crush completely and flush well - only one hole at the bottom of the tube 14F S: pain controlled port site cdi J tube in position abdomen soft incisions cdi Plan: 12/13/16 15:28 Objective: Vital Signs Temp Pulse Resp BP Pulse Ox 36.7 C 97 18 155/92 H 94 12/13/16 12:00 12/13/16 14:00 12/13/16 14:00 12/13/16 14:49 12/13/16 14:00 Microbiology 12/11/16 13:15 - Final Sputum, Induced/Suctioned Sputum Culture - Final Escherichia Coli Laboratory Results 12/10/16 08:30 12/10/16 08:30 12/12/16 12/13/16 12/14/16 05:59 05:59 05:59 Intake Total 1000 1568 Output Total 400 1125 Balance 600 443 PT 15.3 SEC (12.0-15.0) H 12/10/16 08:30 INR 1.21 (0.83-1.16) H 12/10/16 08:30 ICD10 Worksheet Patient Problems: Problems Problem Status Onset Airway compromise Acute
--- NOTE | 2016-12-13 21:01 | SOAPPROG ---
SOAP Progress Note Assessment/Plan: Assessment: POD 1 s/p emergent tracheostomy, direct laryngoscopy and biopsy Plan: -ICU team: appreciate care and treatment for PNA -cont aggressive pulm toilet -J-tube feedings started: trach secretions ? tube feeds -ask if they can dye the tube feeds to see if they are coming out the trach: pt with E coli cultures, large hiatal hernia -staging CT scans have been done as an outpatient -d/c planning: needs trach supplies: suction unit, humidifier, trach supplies -stable for d/c per ENT: trach changed to Portex #7 uncuffed unfenestrated -RT and nursing to teach family and pt about trach care -passey jason valve (intermittent only 2/2 secretions) -ice chips ok -will see pt on Wed if in [place] Subjective: pt with some abdominal pain but no other issues. he has been speaking around the 7 cuffed tube with cuff deflated. Objective: Vital Signs Temp Pulse Resp BP Pulse Ox 36.8 C 89 28 H 127/81 H 97 12/13/16 20:00 12/13/16 20:00 12/13/16 20:00 12/13/16 20:00 12/13/16 20:00 Microbiology 12/11/16 13:15 - Final Sputum, Induced/Suctioned Sputum Culture - Final Escherichia Coli Laboratory Results 12/10/16 08:30 12/10/16 08:30 12/12/16 12/13/16 12/14/16 05:59 05:59 05:59 Intake Total 1000 1568 3965 Output Total 400 1125 400 Balance 968 975 4639 PT 15.3 SEC (12.0-15.0) H 12/10/16 08:30 INR 1.21 (0.83-1.16) H 12/10/16 08:30 Physical Exam - Physical Exam General Appearance: alert (necK: trach removed, there is some reddness and small area of ulceration alond inferior border of trach, secretions very white and thick) ICD10 Worksheet Patient Problems: Problems Problem Status Onset Airway compromise Acute - ICD10 Problem Qualifiers (1) Airway compromise
[2016-12-13] MEDS: BIMATOPROST EACHEYE SCH (21:38)
[2016-12-14] MEDS: LANSOPRAZOLE SUSP 30MG/10ML UDSYR (Adult) TUBE SCH (08:20)
[2016-12-14] MEDS: BRIMONIDINE/TIMOLOL 5 ML OPHT.BTL EACHEYE SCH ×2 (08:20→20:41)
[2016-12-14] MEDS: SULFAMETHOX TUBE SCH ×2 (08:20→20:40)
[2016-12-14] MEDS: TMP TUBE SCH ×2 (08:20→20:40)
[2016-12-14 10:57] LABS: % IMMATURE GRANULYOCYTES 0.5 % (0.0-1.1); ABSOLUTE IMMATURE GRANULOCYTES 0.05 10^3/uL (0.00-0.10); ADD DIFF? NO; ADD MORPH? NO; ADD SCAN? NO; ATYPICAL LYMPHOCYTE FLAG 10 (0-99); FRAGMENT RBC FLAG 0 (0-99); HEMATOCRIT 34.3 % (40.0-51.0); LEFT SHIFT FLG 10 (0-99); LIPEMIA HEMOLYSIS FLAG 90 (0-99); MEAN CELL HEMOGLOBIN 30.3 pg (27.9-34.1); MEAN CELL VOLUME 86.6 fL (81.5-99.8); MEAN PLATELET VOLUME 9.3 fL (8.7-11.7); PLATELET CLUMPS FLAG 0 (0-99); PLATELET COUNT 261 10^3/uL (150-400); RED BLOOD CELL COUNT 3.96 10^6/uL (4.40-6.38); RED CELL DISTRIBUTION WIDTH 12.8 % (11.5-15.2)
--- NOTE | 2016-12-14 13:13 | SOAPPROG ---
SOAP Progress Note Assessment/Plan: Assessment: POD #2 s/p Left IJ port and jejunostomy tube Pain controlled Tolerating tube feeds, advancing. Concern of aspiration of tube feeds, as there is tube feed-appearing fluid being suctioned from trach. Will trial hold tube feeds x 8 hours to see if trach secretions decrease. Keep head of bed >30 degrees If use J tube for meds, must crush completely and flush well - only one hole at the bottom of the tube 14F Seen with Dr. Caruso, discussed with pr manager S: pain controlled, increased secretions from trach, looks like tube feeds port site cdi J tube in position abdomen soft incisions cdi Thin reddy fluid in trach collar, appearance of tube feeds 12/14/16 13:44 Objective: Vital Signs Temp Pulse Resp BP Pulse Ox 37.0 C 84 26 H 134/71 H 88 L 12/14/16 12:00 12/14/16 12:00 12/14/16 12:00 12/14/16 12:00 12/14/16 12:00 Microbiology 12/11/16 13:15 - Final Sputum, Induced/Suctioned Sputum Culture - Final Escherichia Coli Laboratory Results 12/14/16 10:45 12/10/16 08:30 12/13/16 12/14/16 12/15/16 05:59 05:59 05:59 Intake Total 1568 4917 Output Total 1125 650 Balance 443 4267 PT 15.3 SEC (12.0-15.0) H 12/10/16 08:30 INR 1.21 (0.83-1.16) H 12/10/16 08:30 ICD10 Worksheet Patient Problems: Problems Problem Status Onset Airway compromise Acute
--- NOTE | 2016-12-14 14:10 | SOAPPROG ---
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 He is stable in ICU, and will be discharged to a rehab facility tomorrow. Pathology confirms SCC, HPV status is pending. If HPV negative, plan Weekly Cisplatin with XRT. If HPV positive, could consider Erbitux instead of Cisplatin given the better overall prognosis in HPV positive patients. I think it will be quite logistically difficult to get an outpatient PET scan, so I have recommended completion staging with CT neck/chest/abdomen/pelvis prior to discharge. I have ordered this imaging study. Patient lives in [place]. I will arrange outpatient follow up in my office, and with Jaycee Brown of radiation oncology. Patient will go home with tube feedings. Above plan discussed with patient, (Pat), and son, as well as nursing. Family questions answered. 12/14/16 14:02 12/14/16 14:03 Subjective: Patient has had J-tube and mediport placed. He will likely be discharged tomorrow. and son at bedside. He denies pain. Objective: Vital Signs Temp Pulse Resp BP Pulse Ox 37.0 C 84 26 H 134/71 H 88 L 12/14/16 12:00 12/14/16 12:00 12/14/16 12:00 12/14/16 12:00 12/14/16 12:00 Microbiology 12/11/16 13:15 - Final Sputum, Induced/Suctioned Sputum Culture - Final Escherichia Coli Laboratory Results 12/14/16 10:45 12/10/16 08:30 12/13/16 12/14/16 12/15/16 05:59 05:59 05:59 Intake Total 1568 4917 Output Total 1125 650 Balance 443 4267 PT 15.3 SEC (12.0-15.0) H 12/10/16 08:30 INR 1.21 (0.83-1.16) H 12/10/16 08:30 - Time Spent With Patient Time Spent With Patient: 45 minutes Physical Exam - Physical Exam General Appearance: alert, no apparent distress EENT: other (Tracheostomy in place. No palpable cervical IESHA) Respiratory: lungs clear Cardiac/Chest: regular rate, rhythm Abdomen: soft Neuro/Psych: normal mood/affect, oriented x 3 ICD10 Worksheet Patient Problems: Problems Problem Status Onset Airway compromise Acute
--- NOTE | 2016-12-14 14:39 | PDINTPN ---
Tanning Solution Maker Progress Note Assessment/Plan: Assessment/plan: 81 M with history of multiple skin cancers admitted 12/09/16 for biopsy of hypopharyngeal mass complicated by bleeding and need for emergent trach. 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 Hospital course also complicated by large hiatal hernia, so J-tube placed, but ongoing tracheal secretions have been a problem, raising the concern for aspiration pneumonia. CXR has shown diffuse infiltrates suggestive of pulmonary edema, though a BNP or echo has not been done as far as I can tell. Bactrim started 12/13. Concerns have also been raised about the possibility of tube feeds seen on tracheal suctioning. * Tracheostomy- 2/2 hypopharyngeal mass (squamous cell carcinoma) and bleeding. Currently stable though tolerating PMV intermittently 2/2 large amount of secretions. Holding TF today to see if secretions tashi, will ask about dye study as well. Family teaching underway. Keep HOB> 30 degrees. * Squamous cell carcinoma- planning CT eval for evidence of mets per oncology. * Aspiration PNA- unclear to me at the moment. He does have patchy infiltrates on CXR and his WBC went from 14 to 9 with Bactrim (given, presumably, based on trach culture growing E. Coli). Would continue for 7 day course. Check BNP with AM labs. * FEN- holding TF as described. Case reviewed with Dr. Luz. S/p jejunostomy tube. * Dispo: planning swing bed in [place] when stable for DC. * Subjective: Feels well and without complaints Objective: Vital Signs Temp Pulse Resp BP Pulse Ox 37.0 C 87 28 H 144/86 H 92 12/14/16 12:00 12/14/16 14:00 12/14/16 14:00 12/14/16 14:00 12/14/16 14:00 Microbiology 12/11/16 13:15 - Final Sputum, Induced/Suctioned Sputum Culture - Final Escherichia Coli Laboratory Results 12/14/16 10:45 12/10/16 08:30 12/13/16 12/14/16 12/15/16 05:59 05:59 05:59 Intake Total 1568 4917 Output Total 1125 650 Balance 443 4267 PT 15.3 SEC (12.0-15.0) H 12/10/16 08:30 INR 1.21 (0.83-1.16) H 12/10/16 08:30 Physical Exam - Physical Exam General Appearance: alert, no apparent distress EENT: PERRL/EOMI Neck: supple Respiratory: lungs clear, normal breath sounds, No respiratory distress, No rales Abdomen: normal bowel sounds, non-tender, soft Skin: warm/dry, No rash Lymphatic: no adenopathy Extremities: No pedal edema Neuro/Psych: alert, normal mood/affect, oriented x 3 ICD10 Worksheet Patient Problems: Problems Problem Status Onset Airway compromise Acute
[2016-12-14] MEDS ORDERED: IOPAMIDOL (ISOVUE-300) 100 ML BTL IV ONE (14:56)
[2016-12-14] MEDS: BIMATOPROST EACHEYE SCH (20:41)
--- NOTE | 2016-12-15 09:31 | PDINTPN ---
Automation Controls Specialist Progress Note Assessment/Plan: Assessment/plan: 81 M with history of multiple skin cancers admitted 12/09/16 for biopsy of hypopharyngeal mass complicated by bleeding and need for emergent trach. 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 Hospital course also complicated by large hiatal hernia, so J-tube placed, but ongoing tracheal secretions have been a problem, raising the concern for aspiration pneumonia. CXR has shown diffuse infiltrates suggestive of pulmonary edema, though a BNP or echo has not been done as far as I can tell. Bactrim started 12/13. Concerns have also been raised about the possibility of tube feeds seen on tracheal suctioning. * Tracheostomy- 2/2 hypopharyngeal mass (squamous cell carcinoma) and bleeding. Currently stable though tolerating PMV intermittently 2/2 large amount of secretions. Held TF overnight with no change in secretion production. Trying grape juice/dye today. Will add qid atrovent as well. Keep HOB> 30 degrees. Wound care to see regarding stoma site which is starting to show signs of breakdown. * Squamous cell carcinoma- neck with known mass and necrotic LN. Lungs without evidence of malignancy, but patchy infiltrates. Abdo CT without evidence of malignancy. Plans per oncology * Aspiration PNA- CT with patchy multi-focal infilatrates and more dense consolidation in RLL with small pleural effusion. Bactrim (given, presumably, based on trach culture growing E. Coli) started 12/13. Would continue for 7 day course. Check BNP with AM labs (pending as of now). * FEN- S/p jejunostomy tube- planning dye/grape juice to eval if secretions are related to TF. The amount did not change with holding TF overnight. Discussed with Dr. Caruso * Dispo: possible DC to [facility]ACH today if TF resolved. * 12/15/16 09:03 Subjective: Feels well, though frustrated with trach secretions. Denies CP, sob, f/c/s Objective: Vital Signs Temp Pulse Resp BP Pulse Ox 36.8 C 68 22 H 137/90 H 92 12/14/16 20:00 12/15/16 06:00 12/15/16 06:00 12/15/16 06:00 12/15/16 06:00 Laboratory Results 12/14/16 10:45 12/10/16 08:30 12/14/16 12/15/16 12/16/16 05:59 05:59 05:59 Intake Total 4917 1992 Output Total 650 950 Balance 4267 1043 PT 15.3 SEC (12.0-15.0) H 12/10/16 08:30 INR 1.21 (0.83-1.16) H 12/10/16 08:30 Physical Exam - Physical Exam General Appearance: alert, no apparent distress EENT: PERRL/EOMI, other (copious yellow tracheal secretions) Neck: supple Respiratory: lungs clear, normal breath sounds, No respiratory distress Cardiac/Chest: normal peripheral pulses, regular rate, rhythm, No edema Abdomen: normal bowel sounds, non-tender, soft, other (J tube site c;nirav and dry ) Skin: normal color, warm/dry Lymphatic: no adenopathy Extremities: non-tender, No pedal edema Neuro/Psych: alert, normal mood/affect, oriented x 3 ICD10 Worksheet Patient Problems: Problems Problem Status Onset Airway compromise Acute
--- NOTE | 2016-12-15 09:59 | SOAPPROG ---
SOAP Progress Note Assessment/Plan: Assessment: POD 1 s/p emergent tracheostomy, direct laryngoscopy and biopsy Plan: -ICU team: appreciate care, on bactrim -cont aggressive pulm toilet -J-tube feedings started: trach secretions ? tube feeds: will color TF with something to confirm he isn't aspirating TF -d/c planning: needs trach supplies: suction unit, humidifier, trach supplies, tube feeds can be advanced in rehab -stable for d/c per ENT: trach changed to Portex #7 uncuffed unfenestrated -RT and nursing to teach family and pt about trach care -passey jason valve (intermittent only 2/2 secretions) -ice chips ok 12/15/16 09:57 Subjective: pt without any complaints of pain this am. Objective: Vital Signs Temp Pulse Resp BP Pulse Ox 36.8 C 68 22 H 137/90 H 92 12/14/16 20:00 12/15/16 06:00 12/15/16 06:00 12/15/16 06:00 12/15/16 06:00 Laboratory Results 12/14/16 10:45 12/10/16 08:30 12/14/16 12/15/16 12/16/16 05:59 05:59 05:59 Intake Total 4917 1993 Output Total 650 950 Balance 4267 1043 PT 15.3 SEC (12.0-15.0) H 12/10/16 08:30 INR 1.21 (0.83-1.16) H 12/10/16 08:30 Physical Exam - Physical Exam EENT: other (neck: trach in place, still with excessive milky white secretions despite TF off) ICD10 Worksheet Patient Problems: Problems Problem Status Onset Airway compromise Acute - ICD10 Problem Qualifiers (1) Airway compromise
[2016-12-15 10:11] LABS: % IMMATURE GRANULYOCYTES 0.8 % (0.0-1.1); ABSOLUTE IMMATURE GRANULOCYTES 0.08 10^3/uL (0.00-0.10); ADD DIFF? NO; ADD MORPH? NO; ADD SCAN? NO; ATYPICAL LYMPHOCYTE FLAG 30 (0-99); FRAGMENT RBC FLAG 0 (0-99); HEMATOCRIT 39.3 % (40.0-51.0); HEMOGLOBIN 13.6 g/dL (13.7-17.5); LEFT SHIFT FLG 10 (0-99); LIPEMIA HEMOLYSIS FLAG 90 (0-99); MEAN CELL HEMOGLOBIN 29.6 pg (27.9-34.1); MEAN CELL HEMOGLOBIN CONCENTR. 34.6 g/dL (32.4-36.7); MEAN CELL VOLUME 85.4 fL (81.5-99.8); MEAN PLATELET VOLUME 9.1 fL (8.7-11.7); PLATELET CLUMPS FLAG 10 (0-99); PLATELET COUNT 309 10^3/uL (150-400); RED CELL DISTRIBUTION WIDTH 12.9 % (11.5-15.2)
[2016-12-15 10:41] LABS: ANION GAP 10 mEq/L (8-16); CALCIUM 8.5 mg/dL (8.5-10.4); CARBON DIOXIDE 23 mEq/l (22-31); CHLORIDE 98 mEq/L (97-110); CREATININE 0.5 mg/dL (0.7-1.3); GLOMERULAR FILTRATION RATE > 60; GLUCOSE 112 mg/dL (70-100); SODIUM 131 mEq/L (134-144)
[2016-12-15] MEDS: SULFAMETHOX TUBE SCH ×2 (11:24→21:53)
[2016-12-15] MEDS: TMP TUBE SCH ×2 (11:24→21:53)
[2016-12-15] MEDS: LANSOPRAZOLE SUSP 30MG/10ML UDSYR (Adult) TUBE SCH (11:24)
[2016-12-15] MEDS: BRIMONIDINE/TIMOLOL 5 ML OPHT.BTL EACHEYE SCH ×2 (11:25→20:52)
[2016-12-15] MEDS: IPRATROPIUM BROMIDE 0.5 MG/2.5 ML DEYVIAL IH SCH ×3 (11:57→20:15)
--- NOTE | 2016-12-15 12:14 | WOCRNPDOC ---
WOCRN Advanced Assessment Note - Skin Integrity Problem, Advanced Assess Left Clavicle Pressure Injury Dressing Type: Dressing Sponge, Polymem Dressing Description: Intact, Saturated Other Exudate Characteristic(s): Large amount of exudate from trach site, wound has no drainage. Integumentary Issue Intervention: Dressing Removed Shana Wound Tissue: Erythema, Raw, Crusted Wound Bed Color: Yellow Wound Bed Constitution: Adhered Slough Wound Edges: Attached Site Measurement - Head-to-Toe Length X Width X Depth (cm): 0.5x1x0.2 Pressure Injury Stage: Unstageable, Screw Machine Operator Related Pressure Injury ( Tracheostomy face plate) Pressure Injury Present on Admit: No Skin Integrity Problem Comment: Distal face plate resting on clavicle resulted in an unstagable pressure injury. Shana wound skin denuded and raw from copious secretions. Drawtex dressing tubed down to RN as well as clear zinc cream to protect skin. Recommend creating a bumper from a trach tie and a roll of cindy to place under bumper to keep faceplate off the area. Reported to Pat [place]. RT in room an assisted with care/assessment. Wound care will round again 12/17.
--- NOTE | 2016-12-15 14:26 | SOAPPROG ---
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 Pathology confirms SCC, HPV status is pending. If HPV negative, plan Weekly Cisplatin with XRT. If HPV positive, could consider Erbitux instead of Cisplatin given the better overall prognosis in HPV positive patients. His staging with CT neck/chest/abdomen/pelvis reveals aspiration PNA. He is being treated with Bactrim. I do not think that the areas seen on CT represent malignancy. He does not have obvious evidence of metastatic disease. Will plan on repeat chest CT in future to ensure improvement in his infiltrates. Abdominal pneumatosis on CT is secondary to his recent J tube placement. Plan for radiation and chemotherapy to be given in [place]. Currently disposition is an issue. I have placed a call to staff at the [facility] (TCU) to request that the patient be transferred there to begin his therapy. [facility] case management will speak with [facility] TCU senior marketing manager later this afternoon to see if this would be possible. Patient will continue with tube feedings. Above plan discussed with patient, (Pat). Family questions answered. 12/14/16 14:02 12/14/16 14:03 12/15/16 14:21 12/15/16 14:26 Subjective: Patient denies pain. Disposition is proving to be a challenge. Objective: Vital Signs Temp Pulse Resp BP Pulse Ox 36.8 C 93 19 133/82 H 93 12/14/16 20:00 12/15/16 12:00 12/15/16 12:00 12/15/16 12:00 12/15/16 12:00 Laboratory Results 12/15/16 10:00 12/15/16 10:00 12/14/16 12/15/16 12/16/16 05:59 05:59 05:59 Intake Total 4917 1993 Output Total 650 950 Balance 4267 1043 PT 15.3 SEC (12.0-15.0) H 12/10/16 08:30 INR 1.21 (0.83-1.16) H 12/10/16 08:30 - Time Spent With Patient Time Spent With Patient: 25 minutes Physical Exam - Physical Exam General Appearance: alert, no apparent distress EENT: other (Tracheostomy in place) Abdomen: non-tender, soft Neuro/Psych: alert, normal mood/affect ICD10 Worksheet Patient Problems: Problems Problem Status Onset Airway compromise Acute
[2016-12-15] MEDS: ENOXAPARIN 40 MG/0.4 ML SYR SC SCH (16:46)
[2016-12-15] MEDS: D5W 1/2 NS W/ 20 KCl/L 1,000 ML IV SCH (17:25)
--- NOTE | 2016-12-15 17:35 | SOAPPROG ---
SOAP Progress Note Assessment/Plan: Assessment: POD #3 s/p Left IJ port and jejunostomy tube Pain controlled Concern of aspiration of tube feeds - trial of grape juice to see if purple coming out of trach. If no purple, may continue tube feeds. Keep head of bed >30 degrees If use J tube for meds, must crush completely and flush well - only one hole at the bottom of the tube 14F Seen with Dr. Caruso S: pain controlled, still having secretions from trach, stronger cough today port site cdi J tube in position abdomen soft incisions cdi Thin reddy fluid in trach collar, appearance of tube feeds Objective: Vital Signs Temp Pulse Resp BP Pulse Ox 36.6 C 76 24 H 124/62 H 98 12/15/16 16:00 12/15/16 16:00 12/15/16 16:00 12/15/16 16:00 12/15/16 16:00 Laboratory Results 12/15/16 10:00 12/15/16 10:00 12/14/16 12/15/16 12/16/16 05:59 05:59 05:59 Intake Total 4917 1993 722 Output Total 650 950 200 Balance 4267 1043 522 PT 15.3 SEC (12.0-15.0) H 12/10/16 08:30 INR 1.21 (0.83-1.16) H 12/10/16 08:30 ICD10 Worksheet Patient Problems: Problems Problem Status Onset Airway compromise Acute
[2016-12-15] MEDS: BIMATOPROST EACHEYE SCH (21:16)
[2016-12-16] MEDS: IPRATROPIUM BROMIDE 0.5 MG/2.5 ML DEYVIAL IH SCH ×2 (05:25→11:25)
[2016-12-16 06:10] VITALS: RESP 20
[2016-12-16 08:32] VITALS: BP 127/71; PULSE 71; TEMP 97.5; O2SAT 93
[2016-12-16] MEDS: BRIMONIDINE/TIMOLOL 5 ML OPHT.BTL EACHEYE SCH (10:51)
[2016-12-16] MEDS: ENOXAPARIN 40 MG/0.4 ML SYR SC SCH (10:52)
[2016-12-16] MEDS: LANSOPRAZOLE SUSP 30MG/10ML UDSYR (Adult) TUBE SCH (10:52)
[2016-12-16] MEDS: TMP TUBE SCH (10:53)
[2016-12-16] MEDS: SULFAMETHOX TUBE SCH (10:53)
[2016-12-16] MEDS ORDERED: SCOPOLAMINE HYDROBROMIDE 1.5 MG PATCH TD SCH (11:00)
--- NOTE | 2016-12-16 11:36 | GDS ---
[f rep st] DISCHARGE SUMMARY DIAGNOSIS: Throat mass and airway compromise. HOSPITAL COURSE: This is an 81-year-old male who was brought to the operating room on 12/09/2016 fo r an outpatient laryngoscopy with biopsy. During the procedure, patient was unable to be intubated and tracheostomy was performed after ventilation for the laryngoscopy. Postoperatively, the patient was admitted to the ICU for tracheostomy management. Consultations with Oncology and [facility] were done. Patient was unable to get a G-tube because of the large hiatal hernia and subseque ntly underwent an open J-tube and port placement in preparation for treatment of a hypopharyngeal sq uamous cell carcinoma. During the hospital stay, the patient was found to have excessive secretions and culture growing out E. coli, and therefore started on Bactrim through his feeding tube. The pa tient was started on tube feeds and tolerating them. His trach was changed out on postop day 4 to a Portex #7 uncuffed unfenestrated tube. Patient is tolerating [place] valve intermittently for p honation, but otherwise requiring suctioning frequently and not able to wear the Passy [place] valve on a continuous basis. The patient has been ambulating with assistance. DISCHARGE PLAN: To [facility] to facilitate the patient getting started on radiat ion and chemotherapy for squamous cell carcinoma of the hypopharynx. NUTRITION: The patient to be fed with Vital AF 1.2 via G-tube with a goal rate of 75 mL/h. Add 100 mL of water flush q.4 hours. Patient otherwise to remain n.p.o. except for ice chips are okay. FOLLOWUP: Patient has followup established with Oncology and Dr. Steward for Radiation Oncology. The patient also needs followup with his retinologist for further treatment of his retinal disease. CONDITION: Fair. MEDICATIONS: The patient to resume his home eye drops which is Combigan 1 drop in each eye twice da danay. Patient also getting Prevacid 30 mg through J-tube daily and Bactrim suspension 20 mL through J-tube twice daily for 7 more days. /[id number]/MODL
[2016-12-17 17:20] LABS: ACCESSION NUMBER HR17-13426; INTERPRETATION See Comments
--- NOTE | 2016-12-21 11:52 | PQFORM ---
PHYSICIAN QUERY FORM Needs Your Response This query form is being sent to you to assure this patient record is coded properly. Please respond to the question below: CENTER CUSTOMER SERVICE ASSOCIATE QUESTION: Dear Dr. Ogden, In reviewing this patient medical record the patient was diagnosed with ' aspiration pneumonia'. In SOAP progress note dated 12/13-12/15 patient diagnosed with 'pneumonia' with 'positive E Coli, with concern of aspiration of tube feeds. In the [employer] Machine Tender progress notes dated 12/14-12/15 patient was diagnosed with 'aspiration pneumonia', with patchy infiltrates on CXR and trach culture growing E Coli. After study, should the diagnosis of 'Aspiration pneumonia' be included in your discharge summary? Yes x No Other more appropriate diagnosis Unable to determine Thank you ROBIN Guerra HIM/Coding Dept. [phone] INSTRUCTIONS FOR RESPONSE: Answer question by clicking on the "Edit Document" button. Move cursor to area below the stars. When complete, hit "Save." Click on the "Sign" button, then click "Sign" again. Type in your PIN and hit "Enter." MTDD
== END 2016-12-16 13:25 | disposition short-term general hospital (02) | DRG 11 ==
LOC: F3E 16:24 → F2N 20:45
PROVIDERS: ADMIT Otolaryngology; ATTEND Otolaryngology
DX: C13.9 Malignant neoplasm of hypopharynx, unspecified (principal); J69.0 Pneumonitis due to inhalation of food and vomit; J44.9 Chronic obstructive pulmonary disease, unspecified; L89.890 Pressure ulcer of other site, unstageable; K44.9 Diaphragmatic hernia without obstruction or gangrene; B96.20 Unspecified Escherichia coli [E. coli] as the cause of diseases classified elsewhere; Z80.0 Family history of malignant neoplasm of digestive organs; Z80.49 Family history of malignant neoplasm of other genital organs; Z87.891 Personal history of nicotine dependence; Z85.820 Personal history of malignant melanoma of skin
CPT/HCPCS: 88365-90; 92507-GN; 92523-GN; 92526-GN; 97110-GP; 97116-GP; 97162-GP; 97166-GO; 97530-GO; 97530-GP; 97535-GO; C1788; G8978-GP-CJ; G8978-GP-CK; G8979-GP-CI; G8980-GP-CJ; G8987-GO-CK; G8988-GO-CI; G9171-GN-CI; G9171-GN-CJ; G9172-GN-CI; G9173-GN-CI; J0171; J0330; J0690; J1100; J1610; J1644; J1650; J2001; J2250; J2310; J2704; J3010; Q9967; Q9968

== ENCOUNTER → 2017-03-04 | Outpatient (CLI) | payer OTHER ==
[~2017-03-04] MED LIST: IOPAMIDOL (ISOVUE-300) 100 ML BTL ONE
[2017-03-04 11:31] LABS: CREATININE 0.7 mg/dL (0.7-1.3); GLOMERULAR FILTRATION RATE > 60
== END ==
LOC: FIMAGING 10:18
PROVIDERS: ATTEND Internal Medicine Hematology & Oncology
DX: C76.0 Malignant neoplasm of head, face and neck (principal)
CPT/HCPCS: 70491; 71260; J1642; Q9967